=== PATIENT | female | born 1985 | race Caucasian/White ===

== ENCOUNTER → 2021-10-11 12:51 | Outpatient (CLI) | payer OTHER, SELFPAY ==
--- NOTE | 2021-10-11 | DI.MG.S_ITS ---
BILATERAL DIGITAL DIAGNOSTIC MAMMOGRAM 3D/2D: 10/11/2021 CLINICAL: Baseline exam. Palpable left breast lump. No prior exams were available for comparison. There are scattered fibroglandular elements in both breasts. There is a 1 cm irregular equal density focal asymmetry in the left breast at 5 o'clock anterior depth. This correlates as palpated and with area of clinical concern. No other significant masses, calcifications, or other findings are seen in either breast. IMPRESSION: INCOMPLETE: NEEDS ADDITIONAL IMAGING EVALUATION The 1 cm irregular equal density focal asymmetry in the left breast is indeterminate. An ultrasound is recommended for further evaluation and is scheduled to immediately follow this examination. This exam was interpreted at Station ID: [id number]. NOTE: For mammograms, a report in lay terms will be sent to the patient. Approximately 15% of breast malignancies will not be visualized mammographically. In the management of a palpable breast mass, a negative mammogram must not discourage biopsy of a clinically suspicious lesion. Electronically Signed By: Jenaro Gunter M.D. aty/:10/11/2021 13:57:14 ACR BI-RADS Category 0: Incomplete [id number]
--- NOTE | 2021-10-11 | DI.US.S_ITS ---
LIMITED ULTRASOUND OF LEFT BREAST AND AXILLA: 10/11/2021 CLINICAL: Palpable left breast lump. No prior exams were available for comparison. Color flow and real-time ultrasound of the left breast 4 o'clock, and axilla regions were performed. Bland scale images of the real-time examination were reviewed. There is a 1.4 cm x 1.2 cm x 1.5 cm irregular mass in the left breast at 4 o'clock anterior depth 4 cm from the nipple. This irregular mass is hypoechoic with posterior acoustic shadowing. This correlates as palpated, with mammography findings, and area of clinical concern. Color flow imaging demonstrates that there is no vascularity present. No significant abnormalities were seen sonographically in the left axilla. IMPRESSION: HIGHLY SUGGESTIVE OF MALIGNANCY The 1.4 cm x 1.2 cm x 1.5 cm irregular mass in the left breast is highly suggestive of malignancy. An ultrasound guided biopsy is recommended. Findings and recommendations were discussed with the patient by Dr. Moore during today's examination. This exam was interpreted at Station ID: [id number]. Electronically Signed By: Jenaro Gunter M.D. aty/:10/11/2021 14:19:25 letter sent: Biopsy Required Ultrasound BI-RADS: 5 Highly suggestive of malignancy
== END ==
PROVIDERS: Referring Provider Surgery; Visit Provider Surgery
DX: R92.8 Other abnormal and inconclusive findings on diagnostic imaging of breast (principal); N63.23 Unspecified lump in the left breast, lower outer quadrant
CPT/HCPCS: 76642; 77066; G0279